=== PATIENT | female | born 1940 | race Caucasian/White ===

== ENCOUNTER → 2016-02-08 | Outpatient (CLI) | payer BC, OTHER ==
[~2016-02-08] MED LIST: CAL/MAG/ZINC PO; CELEXA20 MG PO; ESTRADIOL 1 MG T1 M1 VAG; GAVISCON ES CH1 EAC1 PO; MELATONIN3 MG PO; NASAL SPRAY; NORVASC5 MG PO; OMEPRAZOLE20 M2 PO; SUPHEDRINE PE10 MG PO; TRAMADOL 50 MG50 MG PO; VITAMIN D2000 UNIT PO; ZOCOR40 MG PO; [UNRECOGNIZED DRUG - OTHER]
== END ==
LOC: RAD 03:50
DX: Z12.31 Encounter for screening mammogram for malignant neoplasm of breast (principal)